=== PATIENT | female | born 1970 | race Caucasian/White ===

== ENCOUNTER → 2017-03-23 | Outpatient (CLI) | payer OTHER ==
--- NOTE | ~2017-03-23 | EKG ---
[address] [address] ELECTROCARDIOGRAM REPORT Name: LINDSAY GUERRERO Room #: [facility]#: [id number] Admission: 03/23/17 Attend Phys: David Monterroso MD, Discharge: Date of : 70 Report #: [id number] THIS REPORT FOR: //name// [facility] Test Date: 2017-03-23 Test Time: 09:46:06 Pat Name: LINDSAY GUERRERO Department: Room: Gender: F Returned Case Inspector: Alanna BENITEZ : 1970 Requested By: David Monterroso Order Number: [id number] MD: Enoc Sandhu Measurements Intervals [place] Rate: 71 P: 54 MD: 154 QRS: -16 QRSD: 107 T: 43 QT: 427 QTc: 465 Interpretive Statements Sinus rhythm Borderline left axis deviation No previous ECG available for comparison Electronically Signed On 03-23-2017 20:27:12 CDT by Enoc Sandhu [email or web address] <ELECTRONICALLY SIGNED> By: Enoc Sandhu MD 03/23/172026 0946 Enoc Sandhu MD /ANGELITA
[2017-03-23 10:40] LABS: BASOPHILS 0.9 % (0.0-2.0); EOSINOPHILS 0.9 % (0.0-3.0); HEMATOCRIT 38.1 % (37.0-47.0); HEMOGLOBIN 12.6 gm/dL (12.0-15.0); LYMPHOCYTES 26.6 % (24.0-44.0); MCHC 33.2 g/dL (28.0-37.0); MCV 81.4 fL (80.0-100.0); MONOCYTES 6.7 % (1.0-8.0); PLATELET COUNT 432 thou/uL (150-400); POLYS 64.9 % (36.0-66.0); RBC 4.67 mil/uL (4.20-5.00); RDW 15.7 % (10.5-14.5); WBC 9.3 thou/uL (4.0-11.0)
[2017-03-23 10:42] LABS: MANUAL DIFF NO
[2017-03-23 10:46] LABS: CALCIUM 9.7 mg/dL (8.5-10.1); CREATININE 0.6 mg/dL (0.6-1.0); POTASSIUM 3.8 mmol/L (3.5-5.1)
[2017-03-23 10:52] LABS: ALBUMIN 3.9 g/dL (3.4-5.0); TOTAL BILIRUBIN 0.5 mg/dL (<0.1-1.0)
== END ==
LOC: RAD 07:57 → CV 08:00
PROVIDERS: Surgery
DX: E66.01 Morbid (severe) obesity due to excess calories (principal)